=== PATIENT | female | born 1985 | race Caucasian/White ===

== ENCOUNTER 2023-05-28 21:17 | Emergency (ER) | payer MEDICAID, OTHER ==
[~2023-05-28] VITALS: Ht 157.5 cm; Wt 78.0 kg
[2023-05-28 21:33] VITALS: BP_SYST 114; PULSE 88; RESP 16; TEMP 97.9; O2SAT 98
[2023-05-28 21:46] VITALS: O2SAT 99
[2023-05-28 23:16] LABS: BASOPHILS % (AUTO) 0.2 % (0.0-2.0); EOSINOPHILS # (AUTO) 0.4 K/uL (0-0.4); EOSINOPHILS % (AUTO) 2.8 % (0.0-4.0); HEMATOCRIT 42.4 % (36-48); HEMOGLOBIN 14.1 g/dL (12.0-16.0); LYMPHOCYTES # (AUTO) 1.8 K/uL (2.5-16.5); LYMPHOCYTES % (AUTO) 14.5 % (20.5-51.1); MEAN CORPUSCULAR HEMOGLOBIN 29 pg (27-31); MEAN CORPUSCULAR HGB CONC 33 g/dL (33-37); MEAN CORPUSCULAR VOLUME 86.6 fL (80-94); MONOCYTES # (AUTO) 0.8 K/uL (0.8-1.0); MONOCYTES % (AUTO) 6.5 % (1.7-9.3); NEUTROPHILS # (AUTO) 9.4 K/uL (1.8-7.7); PLATELET COUNT (AUTO) 425 K/uL (140-450); RED CELL DISTRIBUTION WIDTH 13.9 % (11.6-13.7); WHITE BLOOD COUNT (AUTO) 12.4 K/uL (4.8-10.8)
[2023-05-28 23:29] LABS: ALBUMIN 3.3 g/dL (3.4-5.0); ANION GAP 12.7 (8-16); CALCIUM 8.4 mg/dL (8.5-10.1); CARBON DIOXIDE 27.3 mmol/L (21-32); CREATININE 0.9 mg/dL (0.6-1.3); TOTAL BILIRUBIN 0.4 mg/dL (0.0-1.0); TOTAL PROTEIN, SERUM 8.4 g/dL (6.4-8.2)
[2023-05-28] MEDS: KETOROLAC 30 MG/ML VIAL IM ONE (23:30)
[2023-05-28] MEDS: ONDANSETRON 4 MG ODT PO ONE (23:31)
[2023-05-28 23:39] LABS: APPEARANCE,URINE CLOUDY (CLEAR); BILIRUBIN,URINE 1+ (NEGATIVE); BLOOD, URINE 3+ (NEGATIVE); COLOR,URINE YELLOW (YELLOW); LEUKOCYTE ESTERASE ,URINE NEGATIVE (NEGATIVE); NITRITE, URINE NEGATIVE (NEGATIVE); PROTEIN,URINE 3+ (NEGATIVE); UGLUCOSE NEGATIVE (NEGATIVE); UROBILINOGEN,URINE 0.2 EU/dL (0.2 - 1)
[2023-05-28 23:48] LABS: ICTOTEST POSITIVE (NEGATIVE)
[2023-05-28 23:49] LABS: BACTERIA,URINE >30 (MANY) /HPF (None Seen); MUCUS,URINE 1+ /LPF (None Seen); RBC,URINE 0-5 /HPF (0-5); SQUAMOUS EPITHELIAL CELL,UR 0-3 (FEW) /LPF (0-3 (FEW)); WBC,URINE 0-5 /HPF (0-5)
[2023-05-29 01:01] VITALS: BP 121/75; PULSE 87; RESP 18; TEMP 98.1
[2023-05-29] MEDS ORDERED: ALUMINUM HYD/MAG/SIMETHICONE 30 ML UDC ONE (01:10)
[2023-05-29] MEDS ORDERED: DICYCLOMINE HCL LIQUID 10 MG/5 ML UDC ONE (01:10)
[2023-05-29] MEDS: DICYCLOMINE HCL LIQUID 20 MG, ALUMINUM HYD/MAG/SIMETHICONE 30 ML, LIDOCAINE VISCOUS 2% ... PO ONE (01:23)
[2023-05-29] MEDS: MORPHINE SULFATE 4 MG/ML SYR IVP ONE (01:37)
[2023-05-29 01:41] VITALS: O2SAT 99
[2023-05-29] MEDS ORDERED: cefTRIAXone 1,000 MG VIAL ONE (02:58)
[2023-05-29] MEDS ORDERED: IBUP-2213 PO (03:01)
[2023-05-29] MEDS ORDERED: CEPH-588 PO (03:01)
== END 2023-05-29 04:05 | disposition home or self-care (01) ==
LOC: MED 21:17
DX: N39.0 Urinary tract infection, site not specified (principal); K29.70 Gastritis, unspecified, without bleeding; Z79.899 Other long term (current) drug therapy
CPT/HCPCS: 36415; 74177; 76705; 80053; 81001; 81025; 83690; 85025; 87086; 96365; 96372; 96375; 99285; J0696; J1885; J2270; Q0092; Q0162; Q9967

== ENCOUNTER 2023-09-12 21:34 | Emergency (ER) | payer OTHER ==
[~2023-09-12] VITALS: Ht 157.5 cm; Wt 77.1 kg
[~2023-09-12 21:34] MED LIST: CEPH-588 PO; IBUP-2213 PO
[2023-09-12 21:45] VITALS: BP 115/41; PULSE 92; RESP 16; TEMP 97.4; O2SAT 99
[2023-09-12 23:44] LABS: FLU A ANTIGEN negative (NEGATIVE); FLU B ANTIGEN NEGATIVE (NEGATIVE)
[2023-09-13 00:28] LABS: BASOPHILS % (AUTO) 0.3 % (0.0-2.0); EOSINOPHILS # (AUTO) 0.2 K/uL (0-0.4); HEMATOCRIT 40.6 % (36-48); HEMOGLOBIN 13.7 g/dL (12.0-16.0); LYMPHOCYTES # (AUTO) 2.8 K/uL (2.5-16.5); LYMPHOCYTES % (AUTO) 17.7 % (20.5-51.1); MEAN CORPUSCULAR HEMOGLOBIN 29 pg (27-31); MEAN CORPUSCULAR HGB CONC 34 g/dL (33-37); MEAN CORPUSCULAR VOLUME 86.8 fL (80-94); MONOCYTES # (AUTO) 1.2 K/uL (0.8-1.0); MONOCYTES % (AUTO) 7.7 % (1.7-9.3); NEUTROPHILS # (AUTO) 11.8 K/uL (1.8-7.7); NEUTROPHILS % (AUTO) 73.3 % (42.2-75.2); PLATELET COUNT (AUTO) 413 K/uL (140-450); RED BLOOD CELL COUNT(AUTO) 4.68 MIL/uL (4.20-5.40); RED CELL DISTRIBUTION WIDTH 13.8 % (11.6-13.7); WHITE BLOOD COUNT (AUTO) 16.1 K/uL (4.8-10.8)
[2023-09-13 00:39] LABS: ANION GAP 10.8 (8-16); CALCIUM 9.3 mg/dL (8.5-10.1); CREATININE 0.9 mg/dL (0.6-1.3); POTASSIUM 3.8 mmol/L (3.5-5.1)
[2023-09-13] MEDS: KETOROLAC 30 MG/ML VIAL IM ONE (01:25)
[2023-09-13] MEDS: ACETAMINOPHEN EXTRA STRENGTH 500 MG TAB PO ONE (01:26)
[2023-09-13 03:26] LABS: ALBUMIN 3.5 g/dL (3.4-5.0); BILIRUBIN,DIRECT 0.1 mg/dL (0.0-0.3); TOTAL BILIRUBIN 0.4 mg/dL (0.0-1.0); TOTAL PROTEIN, SERUM 7.2 g/dL (6.4-8.2)
[2023-09-13 04:02] VITALS: BP 115/41; PULSE 92; RESP 16; TEMP 97.4; O2SAT 99
== END 2023-09-13 04:02 | disposition home or self-care (01) ==
LOC: MED 21:34
DX: R07.9 Chest pain, unspecified (principal); Z20.822 Contact with and (suspected) exposure to COVID-19; Z79.899 Other long term (current) drug therapy
CPT/HCPCS: 36415; 71045; 80048; 80076; 83690; 84484; 85025; 87426; 87804; 93005; 96372; 99285; J1885

== ENCOUNTER 2023-11-21 18:51 | Emergency (ER) | payer OTHER ==
[~2023-11-21] VITALS: Ht 162.6 cm; Wt 63.5 kg
[2023-11-21 19:26] VITALS: BP 111/72; PULSE 88; RESP 14; TEMP 97.1; O2SAT 99
[2023-11-21] MEDS ORDERED: CEPH-588 PO (20:21)
== END 2023-11-21 20:26 | disposition home or self-care (01) ==
LOC: MED 18:51
DX: H57.89 Other specified disorders of eye and adnexa (principal); E11.9 Type 2 diabetes mellitus without complications; Z79.899 Other long term (current) drug therapy
CPT/HCPCS: 99283

== ENCOUNTER 2024-01-26 00:38 | Emergency (ER) | payer OTHER ==
[~2024-01-26] VITALS: Ht 152.4 cm; Wt 68.0 kg
[2024-01-26 00:49] VITALS: BP 105/58; PULSE 104; RESP 18; TEMP 98.1; O2SAT 99
[2024-01-26] MEDS ORDERED: PRED20TA5 PO (02:05)
[2024-01-26] MEDS ORDERED: IBUP-2213 PO (02:05)
[2024-01-26 02:30] VITALS: BP 100/86; PULSE 103; RESP 20; TEMP 98.1; O2SAT 98
== END 2024-01-26 02:30 | disposition home or self-care (01) ==
LOC: MED 00:38
DX: R05.9 Cough, unspecified (principal); R07.9 Chest pain, unspecified; E11.9 Type 2 diabetes mellitus without complications; Z79.899 Other long term (current) drug therapy
CPT/HCPCS: 99283